=== PATIENT | female | born 1940 | race Caucasian/White ===

== ENCOUNTER 2017-01-14 21:41 | Emergency (ER) | payer MEDICARE, SELFPAY ==
[2017-01-14 15:56] LABS: BASOPHILS 0.2 %; BASOPHILS ABSOLUTE 0.03 10/3/uL (0.0-0.16); EOSINOPHILS 0.4 %; EOSINOPHILS ABSOLUTE 0.07 10/3/uL (0.0-0.53); IMMATURE GRANULOCYTES 0.4 %; IMMATURE GRANULOCYTES ABSOLUTE 0.07 10/3/uL (0.0-0.11); LYMPHOCYTES 4.3 %; LYMPHOCYTES ABSOLUTE 0.86 10/3/uL (0.67-4.30); MEAN CORPUS HGB CONC 32.7 g/dL (32.0-36.0); MEAN CORPUSCULAR HEMOGLOB 28.6 pg (26.0-34.0); MEAN CORPUSCULAR VOLUME 87.3 fL (80-100); MEAN PLATELET VOLUME 9.7 fL (9.2-13.0); MONOCYTES 6.2 %; MONOCYTES ABSOLUTE 1.22 10/3/uL (0.21-1.20); NEUTROPHILS 88.5 %; NEUTROPHILS ABSOLUTE 17.56 10/3/uL (2.02-8.40); PLATELET COUNT 344 10/3/uL (150-400); RBC DISTRIBUTION WIDTH 14.6 % (12.0-16.0)
[2017-01-14 15:57] LABS: ER CBC TAT 0 Hrs 09 Mins; HEMATOCRIT 37.9 % (36.0-48.0); HEMOGLOBIN 12.4 g/dL (12.0-16.0); MANUAL DIFF NO %; RED CELL COUNT 4.34 10/6/uL (4.0-5.6); WHITE BLOOD CELLS 19.8 10/3/uL (4.5-10.5)
[2017-01-14 16:12] LABS: CHLORIDE, SERUM 99 MMOL/L (96-112); CO2 (CARBON DIOXIDE) 30 MMOL/L (24-34); CREATININE 1.23 MG/DL (0.55-1.02); GFR AFRICAN AMERICAN 50 ML/MIN (>=60); GFR NON AFRICAN AMERICAN 43 ML/MIN (>=60); GLUCOSE, SERUM 126 MG/DL (60-99); POTASSIUM, SERUM 4.1 MMOL/L (3.5-5.3); SGOT(AST) 13 U/L (5-40); SGPT(ALT) 15 U/L (5-65); SODIUM, SERUM 138 MMOL/L (135-148); TOTAL BILIRUBIN 0.4 MG/DL (0-1.2); TOTAL PROTEIN 7.4 G/DL (6.0-8.5)
[2017-01-14 16:14] LABS: A/G RATIO 0.8 (0.7-1.9); ALBUMIN 3.3 G/DL (3.5-5.0); ALKALINE PHOSPHATASE 147 U/L (45-117); BUN (BLOOD UREA NITROGEN) 19 MG/DL (6-23); GLOBULIN 4.1 G/DL (2.5-4.1)
[2017-01-14 20:35] LABS: PARTIAL THROMBO TIME 42.1 SEC (22.5-37.2)
[2017-01-14 20:39] LABS: INTERNATIONAL NORMAL RATI 1.4 UNITS (-); PROTIME (NOT ORD) 17.1 SEC (12.0-14.5)
[2017-01-14 20:44] LABS: LACTATE 2.2 MMOL/L (0.3-2.4)
[2017-01-14 20:46] LABS: INFLUENZA A SCREEN NEGATIVE (NEGATIVE); INFLUENZA B SCREEN NEGATIVE (NEGATIVE)
[~2017-01-14 21:41] MED LIST: *UNABLE1; ADVAIR250 INH; ALAVERT10 MG PO; ALBUTEROL5 INH; APIXABAN PO; ARTHROTEC 50 PO; ARTHROTEC 75 PO; ARTHROTEC PO; ASAB PO; ATEN25 PO; ATENOLOL PO; ATROVENTUD INH; ATV.5 PO; ATV1 PO; AUG875 PO; BACDS PO; BENTYL20 PO; BETHAN25B PO; BIOTIN5 MG PO; C25 PO; C5; CALTRA600D PO; CARASPUDL PO; CARDCD180 PO; CARTIA XT180 MG/24 PO; CELEXA40 MG PO; COMBIVENT INH; CONSTULOSE PO; CYSTEX; CYTOTEC2 PO; DILT-XR180 MG PO; DRAMAMINE25 MG PO; DUONEB INH; DYAZIDE1 CAP PO; ELIQUIS 2.5 MG2.5 MG PO; ELIQUIS 5 MG TAB5 MG PO; FLECAINIDE50 MG PO; FLEX PO; FLEXERIL PO; FLEXERIL5 MG PO; FLONASE NAS; FLUCON2 PO; FORTAMET500 MG PO; GAS RELIEF PO; GLUCPH PO; HALF81 PO; HARD NAILS PO; HCTZ PO; HYDROMET1 ML PO; HYZAAR1 TAB PO; IRON INFUSION INF; IRON INFUSION IV; KAPIDEX60 MG PO; KLOR-CON M2020 MEQ PO; L40 PO; LAMICTAL10 PO; LAMOTRIGINE PO; LASIX PO; LEVAQUIN5T PO; LEVAQUIN750 MG PO; LIDODERM T; LORAZEPAM PO; LORTAB 5 PO; LOSARTAN PO; MAX25 PO; METFORMIN 500MG PO; METOLAZONE PO; MIRALAXPKT PO; MONISTAT 34 % VA; MUCINEX D1 TAB OR; MUCINEX600 MG PO; NEBULIZER SOLUTION INH; NEUR100 PO; NEUR300 PO; NITROSTAT0.4 MG SL; NORCO1 TA1 PO; NORCO1 TA2 PO; NYSTATPOW TOP; NYSTOP100000 MG TOP; OMNICEF300 PO; P10 PO; P20; P20 PO; PCET PO; PERCOCET1 TA4 PO; PR25 PO; PRAVAC PO; PRAVACHOL40 MG PO; PRILO PO; PROAIR HFA INH; PROCTOFOAM15 GM PR; PROLOP100 PO; PROTONIX PO; PROVENTSOL INH; PULMICORT180 MCG INH; PVC V; Proair Hfa; QVAR INH; QVAR40 MC1 IN; QVAR80 MCG INH; QVAR80 MCG PO; RANITIDINE300 MG PO; REST15 PO; RX NASAL SPRAY NAS; SEROQUEL PO; SEROQUEL1C PO; SEROQUEL200 MG PO; SERTRALINE PO; SINGULAIR1 PO; STOOL SOFTEN100 MG PO; SUCR PO; TAMBO50 PO; TEG100B PO; TERAZOL 70.4 % VA; TESS PO; TRAZ100 PO; ULTRACET PO; ULTRAM50 PO; VITAMIN D OTC PO; VITAMIN D PO; VITAMIN D1000 UNI1 PO; VITAMIN D2 PO; VITC500 PO; VITD PO; VOLT75 PO; XARELTO20 MG PO; XOPENEX HFA INH; ZANTAC300 MG PO; ZAROX2.5B PO; ZITHROMAX500 MG PO; ZOFRAN ODT4 MG PO; ZOFRAN8 PO; ZOL100 PO; ZOL50 PO; [UNRECOGNIZED DRUG - OTHER]; [UNRECOGNIZED DRUG - OTHER] INH; [UNRECOGNIZED DRUG - OTHER] INH; [UNRECOGNIZED DRUG - OTHER] OPH; [UNRECOGNIZED DRUG - OTHER] VA
[2017-01-14 21:43] LABS: ASCORBIC ACID (UR NOT ORDER) NEG (NEG); BILIRUBIN, URINE NEGATIVE (NEG); ER URINALYSIS TAT 0 Hrs 22 Mins; KETONE, URINE NEGATIVE (NEG); LEUKOCYTE ESTERASE(NOT OR NEG (NEG); NITRITE (URINE) NEG (NEG); WBC (NOT ORDERED) (RFLEX) 3 (0-5)
[2017-07-10] MEDS ORDERED: KLONO5 PO (06:54)
[2017-07-10] MEDS ORDERED: Z-PAK PO (17:20)
[2017-07-10] MEDS ORDERED: ZOFRAN4 PO (17:20)
[2017-07-10] MEDS ORDERED: TESS PO (17:20)
[2017-07-10] MEDS ORDERED: FLECAINIDE50 MG PO (17:21)
[2017-07-10] MEDS ORDERED: SINGULAIR1 PO (17:21)
[2017-07-17] MEDS ORDERED: HYDROCHLOROT12.5 MG PO ×2 (13:58→14:51)
[2017-07-17] MEDS ORDERED: ZESTRIL10 MG PO (13:58)
[2017-07-17] MEDS ORDERED: BROVANA15 MCG INH ×2 (13:59→14:54)
[2017-07-17] MEDS ORDERED: PULMICORT180 MCG INH ×2 (13:59→14:54)
[2017-07-17] MEDS ORDERED: PRIN10 PO (14:53)
== END 2017-01-14 22:55 | disposition home or self-care (01) ==
LOC: ER 21:41
PROVIDERS: Emergency Medicine
DX: J06.9 Acute upper respiratory infection, unspecified (principal); J44.9 Chronic obstructive pulmonary disease, unspecified; J45.909 Unspecified asthma, uncomplicated; I10 Essential (primary) hypertension; I48.91 Unspecified atrial fibrillation; F41.9 Anxiety disorder, unspecified; F32.9 Major depressive disorder, single episode, unspecified; E11.9 Type 2 diabetes mellitus without complications; Z79.899 Other long term (current) drug therapy
CPT/HCPCS: 71020; 80053; 81001; 83605; 84145; 85025; 85610; 85730; 87040; 87070; 87804; 87880; 93005; 96374; 99284; J2930

== ENCOUNTER 2017-02-15 21:58 | Emergency (ER) | payer MEDICARE ==
[2017-02-15 19:55] LABS: BASOPHILS 0.3 %; BASOPHILS ABSOLUTE 0.04 10/3/uL (0.0-0.16); EOSINOPHILS 3.1 %; EOSINOPHILS ABSOLUTE 0.36 10/3/uL (0.0-0.53); HEMATOCRIT 38.9 % (36.0-48.0); HEMOGLOBIN 12.5 g/dL (12.0-16.0); IMMATURE GRANULOCYTES 0.7 %; IMMATURE GRANULOCYTES ABSOLUTE 0.08 10/3/uL (0.0-0.11); LYMPHOCYTES 23.5 %; LYMPHOCYTES ABSOLUTE 2.75 10/3/uL (0.67-4.30); MEAN CORPUS HGB CONC 32.1 g/dL (32.0-36.0); MEAN CORPUSCULAR HEMOGLOB 28.4 pg (26.0-34.0); MEAN CORPUSCULAR VOLUME 88.4 fL (80-100); MEAN PLATELET VOLUME 9.6 fL (9.2-13.0); MONOCYTES 8.5 %; NEUTROPHILS 63.9 %; NEUTROPHILS ABSOLUTE 7.49 10/3/uL (2.02-8.40); PLATELET COUNT 407 10/3/uL (150-400); RBC DISTRIBUTION WIDTH 14.7 % (12.0-16.0)
[2017-02-15 19:56] LABS: ER CBC TAT 0 Hrs 08 Mins; MANUAL DIFF NO %; WHITE BLOOD CELLS 11.7 10/3/uL (4.5-10.5)
[2017-02-15 20:02] LABS: INTERNATIONAL NORMAL RATI 1.2 UNITS (-); PARTIAL THROMBO TIME 39.5 SEC (22.5-37.2); PROTIME (NOT ORD) 15.1 SEC (12.0-14.5)
[2017-02-15 20:13] LABS: BUN (BLOOD UREA NITROGEN) 17 MG/DL (6-23); CALCIUM, SERUM 9.6 MG/DL (8.5-10.4); CHEST PAIN PROFILE TAT 0 Hrs 25 Mins; CHLORIDE, SERUM 104 MMOL/L (96-112); CO2 (CARBON DIOXIDE) 28 MMOL/L (24-34); CREATININE 0.97 MG/DL (0.55-1.02); GFR AFRICAN AMERICAN 67 ML/MIN (>=60); GFR NON AFRICAN AMERICAN 58 ML/MIN (>=60); GLUCOSE, SERUM 97 MG/DL (60-99); POTASSIUM, SERUM 3.9 MMOL/L (3.5-5.3); SODIUM, SERUM 140 MMOL/L (135-148); TROPONIN I <0.02 NG/ML (<0.05)
[2017-07-10] MEDS ORDERED: KLONO5 PO (06:54)
[2017-07-10] MEDS ORDERED: ZOFRAN4 PO (17:20)
[2017-07-10] MEDS ORDERED: TESS PO (17:20)
[2017-07-10] MEDS ORDERED: Z-PAK PO (17:20)
[2017-07-10] MEDS ORDERED: FLECAINIDE50 MG PO (17:21)
[2017-07-10] MEDS ORDERED: SINGULAIR1 PO (17:21)
[2017-07-17] MEDS ORDERED: ZESTRIL10 MG PO (13:58)
[2017-07-17] MEDS ORDERED: HYDROCHLOROT12.5 MG PO ×2 (13:58→14:51)
[2017-07-17] MEDS ORDERED: BROVANA15 MCG INH ×2 (13:59→14:54)
[2017-07-17] MEDS ORDERED: PULMICORT180 MCG INH ×2 (13:59→14:54)
[2017-07-17] MEDS ORDERED: PRIN10 PO (14:53)
== END 2017-02-15 22:08 | disposition home or self-care (01) ==
LOC: ER 21:58
PROVIDERS: Emergency Medicine
DX: R07.89 Other chest pain (principal); R60.0 Localized edema; J44.9 Chronic obstructive pulmonary disease, unspecified; I10 Essential (primary) hypertension; F31.9 Bipolar disorder, unspecified; E11.9 Type 2 diabetes mellitus without complications; D64.9 Anemia, unspecified; Z79.899 Other long term (current) drug therapy
CPT/HCPCS: 71020; 80048; 83735; 83880; 84484; 85025; 85610; 85730; 93005; 99285

== ENCOUNTER 2017-05-23 19:27 | Emergency (ER) | payer MEDICARE ==
[2017-05-23 16:46] LABS: BASOPHILS 0.2 %; BASOPHILS ABSOLUTE 0.03 10/3/uL (0.0-0.16); EOSINOPHILS 1.4 %; EOSINOPHILS ABSOLUTE 0.21 10/3/uL (0.0-0.53); ER CBC TAT 0 Hrs 05 Mins; HEMATOCRIT 38.2 % (36.0-48.0); HEMOGLOBIN 12.2 g/dL (12.0-16.0); IMMATURE GRANULOCYTES 0.4 %; IMMATURE GRANULOCYTES ABSOLUTE 0.06 10/3/uL (0.0-0.11); LYMPHOCYTES 15.7 %; LYMPHOCYTES ABSOLUTE 2.39 10/3/uL (0.67-4.30); MEAN CORPUS HGB CONC 31.9 g/dL (32.0-36.0); MEAN PLATELET VOLUME 9.9 fL (9.2-13.0); MONOCYTES 6.4 %; MONOCYTES ABSOLUTE 0.97 10/3/uL (0.21-1.20); NEUTROPHILS 75.9 %; NEUTROPHILS ABSOLUTE 11.54 10/3/uL (2.02-8.40); PLATELET COUNT 308 10/3/uL (150-400); RBC DISTRIBUTION WIDTH 14.3 % (12.0-16.0); RED CELL COUNT 4.52 10/6/uL (4.0-5.6); WHITE BLOOD CELLS 15.2 10/3/uL (4.5-10.5)
[2017-05-23 16:47] LABS: MANUAL DIFF NO %; MEAN CORPUSCULAR VOLUME 84.5 fL (80-100)
[2017-05-23 17:01] LABS: A/G RATIO 0.8 (0.7-1.9); ALBUMIN 3.2 G/DL (3.5-5.0); BUN (BLOOD UREA NITROGEN) 14 MG/DL (6-23); CALCIUM, SERUM 9.2 MG/DL (8.5-10.4); CHLORIDE, SERUM 103 MMOL/L (96-112); CO2 (CARBON DIOXIDE) 27 MMOL/L (24-34); CREATININE 0.99 MG/DL (0.55-1.02); GFR AFRICAN AMERICAN 65 ML/MIN (>=60); GFR NON AFRICAN AMERICAN 56 ML/MIN (>=60); GLOBULIN 3.8 G/DL (2.5-4.1); GLUCOSE, SERUM 97 MG/DL (60-99); POTASSIUM, SERUM 4.1 MMOL/L (3.5-5.3); SGOT(AST) 14 U/L (5-40); SGPT(ALT) 17 U/L (5-65); SODIUM, SERUM 138 MMOL/L (135-148); TOTAL BILIRUBIN 0.7 MG/DL (0-1.2)
[2017-05-23 17:03] LABS: ALKALINE PHOSPHATASE 121 U/L (45-117)
[2017-05-23 18:16] LABS: TROPONIN I <0.02 NG/ML (<0.05)
[2017-07-10] MEDS ORDERED: KLONO5 PO (06:54)
[2017-07-10] MEDS ORDERED: ZOFRAN4 PO (17:20)
[2017-07-10] MEDS ORDERED: Z-PAK PO (17:20)
[2017-07-10] MEDS ORDERED: TESS PO (17:20)
[2017-07-10] MEDS ORDERED: SINGULAIR1 PO (17:21)
[2017-07-10] MEDS ORDERED: FLECAINIDE50 MG PO (17:21)
[2017-07-17] MEDS ORDERED: HYDROCHLOROT12.5 MG PO ×2 (13:58→14:51)
[2017-07-17] MEDS ORDERED: ZESTRIL10 MG PO (13:58)
[2017-07-17] MEDS ORDERED: PULMICORT180 MCG INH ×2 (13:59→14:54)
[2017-07-17] MEDS ORDERED: BROVANA15 MCG INH ×2 (13:59→14:54)
[2017-07-17] MEDS ORDERED: PRIN10 PO (14:53)
== END 2017-05-23 21:30 | disposition home or self-care (01) ==
LOC: ER 19:27
PROVIDERS: Emergency Medicine
DX: J44.9 Chronic obstructive pulmonary disease, unspecified (principal); I10 Essential (primary) hypertension; I48.91 Unspecified atrial fibrillation; F31.9 Bipolar disorder, unspecified; E11.9 Type 2 diabetes mellitus without complications; Z79.899 Other long term (current) drug therapy
CPT/HCPCS: 71020; 80053; 83880; 84484; 85025; 87040; 93005; 96372; 99285